=== PATIENT | female | born 1995 | race Caucasian/White ===

== ENCOUNTER 2021-07-12 23:11 | Emergency (ER) | payer OTHER, SELFPAY ==
[2021-07-12 23:13] VITALS: BP 128/90; PULSE 76; RESP 16; TEMP 36.8; O2SAT 100
--- NOTE | 2021-07-13 00:25 | ED.GENADULT ---
HPI - General Adult General Chief complaint: Allergic Reaction Stated complaint: hives everywhere Time Seen by Provider: 07/13/21 00:18 History of Present Illness HPI narrative: 26-year-old female who presents emerged department with chief complaint of hives. Patient reports she is 14 days after testing positive for COVID-19 reports that for the last several days she has been having urticaria that is popped up has been very itchy patient is taking Latricia and also taking Benadryl reports that she did speak to her brake repairer [employer] who recommended that she does take Latricia. Patient states that she is having no angioedema denies shortness of breath denies wheeze. Related Data Home Medications Medication Instructions Recorded Confirmed Flonase 07/12/21 epinephrine 07/12/21 methylphenidate HCl [Concerta] 18 mg PO QAM 07/12/21 07/12/21 Allergies Allergy/AdvReac Type Severity Reaction Status Date / Time wheat Allergy Swelling Verified 07/13/21 00:43 of Lip/Tongue/Throat Review of Systems Review of Systems: A 10 system review of systems was completed on the patient and is negative except for what is stated in the HPI. Nursing and ancillary documentation was reviewed. Exam Narrative: GENERAL: Well-appearing, well-nourished, and in no acute distress. HEAD: Normocephalic, atraumatic. EYES: PERRLA and EOMI. ENT: Nares clear, no rhinorrhea or epistaxis. Mucous membranes moist. NECK: Supple. CHEST: Clear to auscultation. No respiratory distress. HEART: Regular rate and rhythm. No murmur heard. Normal peripheral pulses. ABDOMEN: Soft, nontender, nondistended, normal active bowel sounds. EXTREMITIES: Normal range of motion. No edema. SKIN: Warm, dry, there is urticaria present. NEURO: No focal deficits. Alert and oriented x3. PSYCH: Normal mood and affect. Course Vital Signs Vital signs: Vital Signs Temperature 36.8 C 07/12/21 23:13 Pulse Rate 76 07/12/21 23:13 Respiratory Rate 16 07/12/21 23:13 Blood Pressure 128/90 07/12/21 23:13 Pulse Oximetry 100 07/12/21 23:13 Temperature 36.8 C 07/12/21 23:13 Pulse Rate 57 L 07/13/21 00:43 Respiratory Rate 16 07/13/21 00:43 Blood Pressure 115/81 07/13/21 00:43 Pulse Oximetry 100 07/13/21 00:43 Medical Decision Making Vital Signs Vital Signs: Vital Signs Temperature 36.8 C 07/12/21 23:13 Pulse Rate 76 07/12/21 23:13 Respiratory Rate 16 07/12/21 23:13 Blood Pressure 128/90 07/12/21 23:13 Pulse Oximetry 100 07/12/21 23:13 Temperature 36.8 C 07/12/21 23:13 Pulse Rate 57 L 07/13/21 00:43 Respiratory Rate 16 07/13/21 00:43 Blood Pressure 115/81 07/13/21 00:43 Pulse Oximetry 100 07/13/21 00:43 Discharge Plan Discharge Clinical Impression: Allergic reaction Qualifiers: Encounter type: initial encounter Qualified Code(s): T78.40XA - Allergy, unspecified, initial encounter Patient Disposition: Home, Self-Care Condition: Stable Instructions: Antibiotic Form, General Allergic Reaction (ED) Prescriptions: New methylprednisolone [Medrol (Ankit)] 4 mg tablets,dose pack See Rx Instructions .ROUTE .COMPLEX Qty: 21 RF: 0 No Action methylphenidate HCl [Concerta] 18 mg Tablet Extended Release 24hr 18 mg PO QAM RF: 0 epinephrine 0.1 mg/0.1 mL Auto-Injector RF: 0 Flonase RF: 0 Follow-up/Referrals: Issa Lopez MD [Primary Care Provider] - PHYSICIAN,STOCK BUYER [Non-Staff] - Time of Disposition: 01:32
[2021-07-13 00:43] VITALS: BP 115/81; PULSE 57; RESP 16; O2SAT 100
[2021-07-13] MEDS: methylPREDNISolone SOD SUCC 125 MG VIAL IV PUSH (00:43)
[2021-07-13] MEDS: FAMOTIDINE 20 MG/2 ML VIAL IV PUSH (00:47)
[2021-07-13 01:36] VITALS: BP 115/63; PULSE 61; RESP 16; O2SAT 100
== END 2021-07-13 01:44 | disposition home or self-care (01) ==
LOC: ANHED 07-13 00:30
PROVIDERS: Emergency Provider Emergency Medicine; PCP Family Medicine
DX: T78.40XA Allergy, unspecified, initial encounter (principal)
CPT/HCPCS: 96374; 96375; 99284; J2930

== ENCOUNTER 2023-10-23 19:01 | Emergency (ER) | payer OTHER, SELFPAY ==
--- NOTE | ~2023-10-23 | XR_ITS ---
EXAMINATION: XR foot LT min 3V DATE: 10/23/2023 19:25 INDICATION: Left foot injury and swelling. TECHNIQUE: 3 views of left foot were obtained. COMPARISON: None. FINDINGS: Bone alignment is normal. No fracture. There is mild osteoarthritis of talonavicular joint. There is ankle soft tissue swelling. IMPRESSION: 1. No fracture. Reviewed, dictated and finalized at location E. IMPRESSION: 1. No fracture.
--- NOTE | ~2023-10-23 | XR_ITS ---
EXAMINATION: XR ankle LT min 3V DATE: 10/23/2023 19:25 INDICATION: Left ankle injury and swelling. TECHNIQUE: 3 views of left ankle were obtained. COMPARISON: None. FINDINGS: Bone alignment is normal. No fracture. There is mild osteoarthritis of talonavicular joint. There is ankle soft tissue swelling. IMPRESSION: 1. No fracture. Reviewed, dictated and finalized at location E. IMPRESSION: 1. No fracture.
[2023-10-23 19:03] VITALS: BP 145/88; PULSE 78; RESP 18; TEMP 36.4; O2SAT 100
--- NOTE | 2023-10-23 21:06 | ED.LOWEXIN ---
HPI - Extremity Injury (Lower) General Chief Complaint: Extremity Injury, Lower Stated Complaint: left foot injury Time Seen by Provider: 10/23/23 20:32 History of Present Illness HPI Narrative: Patient is a healthy 28-year-old female who presents to the ER today after rolling her left ankle while playing basketball around 6:00 p.m. [place]. She notes that she inverted her left ankle and collapsed to the ground. Denies head injury. Denies any other injuries. She notes she has had difficulty bearing weight and has noted a significant amount of swelling in this right ankle. She denies any knee pain. She does note [place] about 5 years ago. Related Data Home Medications Medication Instructions Recorded Confirmed epinephrine 0.1 mg/0.1 mL 07/12/21 02/03/23 injection, auto-injector venlafaxine 37.5 mg 37.5 mg PO DAILY 07/02/22 02/03/23 capsule,extended release 24 hr Allergies Allergy/AdvReac Type Severity Reaction Status Date / Time wheat Allergy Swelling Verified 02/03/23 15:19 of Lip/Tongue/Throat Review of Systems Review of Systems: All systems reviewed & are unremarkable except as noted in HPI and below PMFSH Past Medical History Medical History Abnormal EKG P-wave abnormality, stress test and echo normal May 2022. ADHD Anxiety Athletes foot Surgical History Surgical History History of repair of rotator cuff Family History Family History Father Hypertension Depression Mother Alcoholism Skin cancer Depression Anxiety Sibling Anxiety Depression Grandparent Diabetes mellitus Cerebrovascular accident Heart disease Social History Social History Smoking status: Never smoker Second hand tobacco smoke exposure: No Alcohol intake: never Substance use: never Substance use type: does not use Lack of Transportation: No Lack of Food: Never True Current Housing: I Have Housing Concerned About Future Housing: No Difficulty Paying Gas/Electric Bills: No Difficulty Paying for Meds: No Currently Unemployed: No Education: Bachelor's Degree Difficulty w/ Childcare or Family Care: No Living arrangements: with family Occupation/Education: occupation Gender identity (if verbalized by the patient): Female Spiritual care concerns: No Agree to blood products: Yes Exam Narrative: GENERAL: Well-appearing, well-nourished, and in no acute distress. HEAD: Normocephalic, atraumatic. EYES: PERRLA and EOMI. ENT: Nares clear. Mucous membranes moist. NECK: Supple. CHEST: Unlabored respirations HEART: Regular rate and rhythm. Normal peripheral pulses. EXTREMITIES: Swelling and tenderness present over the lateral malleolus on the right ankle. Decreased range of motion of this joint due to pain. Minimal tenderness throughout the foot. No knee or proximal tib/fib tenderness. Strong DP pulse. Normal capillary refill and sensation over the foot. SKIN: Warm, dry, no rash. No open wounds overlying the injury. NEURO: No focal deficits. Alert and oriented x3. PSYCH: Normal mood and affect. Course Course Emergency Course: Chart review performed. Patient here with left ankle injury while playing basketball. Triage vitals show mild hypertension, otherwise normal. Lt foot xray normal, Lt ankle xray normal. Patient seen evaluated, nontoxic appearing. Awake, alert, oriented. She appears to have an isolated left ankle injury. X-rays confirm no fracture, suspect likely a sprain. Patient already has her own crutches. Will place her in a posterior splint given difficulty with weight-bearing. Advised to follow-up with orthopedic surgery in the next 1 week should she not be improving. She now progre
[2023-10-23] MEDS: HYDROcodone/acetaminophen (*CRX) 5-325 MG TABLET 1 TAB PO (21:20)
== END 2023-10-23 22:00 | disposition home or self-care (01) ==
LOC: ANHED 21:31
PROVIDERS: Emergency Provider Student in an Organized Health Care Education/Training Program; PCP Family Medicine
DX: S93.402A Sprain of unspecified ligament of left ankle, initial encounter (principal); S96.912A Strain of unspecified muscle and tendon at ankle and foot level, left foot, initial encounter; F90.9 Attention-deficit hyperactivity disorder, unspecified type; F41.9 Anxiety disorder, unspecified; X50.9XXA Other and unspecified overexertion or strenuous movements or postures, initial encounter; Y93.67 Activity, basketball
CPT/HCPCS: 29515; 73610; 73630; 99283; A9270